=== PATIENT | female | born 1975 | race Caucasian/White ===

== ENCOUNTER 2019-06-23 18:17 | Emergency (ER) | payer BC ==
[2019-06-23 18:32] VITALS: BP 164/105; PULSE 94; TEMP 98; BMI 25.5
--- NOTE | 2019-06-23 18:32 | PDOC ---
Rapid Medical Evaluation Medical Evaluation: Allergies Allergy/AdvReac Type Severity Reaction Status Date / Time No Known Allergies Allergy Verified 03/14/14 16:01 I have performed a brief in-person evaluation of this patient. The patient presents with a chief complaint of: states is on Amoxicillin for cold but now sharp R sided CP x 2 days; denies smoking or drug use; denies use of OCPs Pertinent physical exam findings: In NAD, lungs clear, +reproducible R chest wall pain I have ordered the following: Labs, ekg, cxr The patient will proceed to the ED for further evaluation. 06/23/19 18:29
[2019-06-23 19:22] LABS: BASO % 0.8 % (0-2.0); EOS % 1.7 % (0-4.5); HEMATOCRIT 39.2 % (32.4-45.2); HEMOGLOBIN 13.1 GM/dL (10.7-15.3); LYMPH % 23.4 % (8-40); MCH 30.4 pg (25.7-33.7); MCHC 33.4 g/dl (32.0-36.0); MEAN PLT VOLUME 7.8 fl (7.5-11.1); MONO % 10.4 % (3.8-10.2); NEUT % 63.7 % (42.8-82.8); PLATELET COUNT 309 K/MM3 (134-434); RBC 4.31 M/mm3 (3.60-5.2); RDW 12.8 % (11.6-15.6); WHITE BLOOD COUNT 6.7 K/mm3 (4.0-10.0)
[2019-06-23 19:52] LABS: ALBUMIN 3.5 g/dl (3.4-5.0); ALK PHOS 73 U/L (45-117); ANION GAP 6 MMOL/L (8-16); BILIRUBIN,TOTAL 0.2 mg/dL (0.2-1); CALCIUM 8.4 mg/dL (8.5-10.1); CHLORIDE 105 mmol/L (98-107); CO2 29 mmol/L (21-32); CREATININE 0.5 mg/dL (0.55-1.3); GLUCOSE,RANDOM 94 mg/dL (74-106); POTASSIUM 3.5 mmol/L (3.5-5.1); SGOT/AST 15 U/L (15-37); SGPT/ALT 20 U/L (13-61); SODIUM 140 mmol/L (136-145); TOT PROT 6.6 g/dl (6.4-8.2)
[2019-06-23] MEDS ORDERED: ACETAMINOPHEN 325 MG TABLET (FP) PO ONE (20:30)
--- NOTE | 2019-06-23 20:33 | PDOC ---
History of Present Illness - General Chief Complaint: Chest Pain Stated Complaint: CHEST PAINS Time Seen by Provider: 06/23/19 18:29 History Source: Patient - History of Present Illness Initial Comments: 06/24/19 02:21 Ms. Chamberlain is a 43 y/o woman w/hx HTN p/w two weeks of fever, chills, cough, muscle aches. She reports recently seeing her PCP one week ago and being prescribed azithromycin for a presumed pneumonia. She reports cough, chest pain during coughing, mild shortness of breath, and generalized muscle aches. She reports previously having an atypical pneumonia and is concerned that she may have a pneumonia as she continues to have symptoms after abx course has been completed. She denies any chest pain at rest, dyspnea, weakness, confusion, N/V/ D. Past History - Past Medical History Allergies/Adverse Reactions: Allergies Allergy/AdvReac Type Severity Reaction Status Date / Time No Known Allergies Allergy Verified 03/14/14 16:01 Home Medications: Ambulatory Orders Oxycodone HCl/Acetaminophen [Percocet 5-325 mg Tablet] 1 tab PO Q6H PRN #8 tablet 03/14/14 COPD: No HTN: Yes - Surgical History Abdominal Surgery: Yes (GASTRIC SLEEV: 02/27/13) Cholecystectomy: Yes - Psycho Social/Smoking Cessation Hx Smoking Status: No Smoking History: Never smoked Have you smoked in the past 12 months: Yes Number of Cigarettes Smoked Daily: 1 'Breaking Loose' booklet given: 02/27/12 Hx Alcohol Use: Yes (SOCIAL) Drug/Substance Use Hx: No Substance Use Type: None Review of Systems - Review of Systems Able to Perform ROS?: Yes Comments:: 06/24/19 02:30 ROS: GENERAL/CONSTITUTIONAL: Fever, chills, generalized weakness. HEAD, EYES, EARS, NOSE AND THROAT: No change in vision. No ear pain or discharge. No sore throat. CARDIOVASCULAR: Chest pain, shortness of breath RESPIRATORY: Cough. No wheezing, or hemoptysis. GASTROINTESTINAL: No nausea, vomiting, diarrhea or constipation. GENITOURINARY: No dysuria, frequency, or change in urination. MUSCULOSKELETAL: Generalized muscle aches. No joint swelling or pain. No neck or back pain. SKIN: No rash NEUROLOGIC: No headache, vertigo, loss of consciousness, or change in strength/ sensation. ENDOCRINE: No increased thirst. No abnormal weight change HEMATOLOGIC/LYMPHATIC: No anemia, easy bleeding, or history of blood clots. ALLERGIC/IMMUNOLOGIC: No hives or skin allergy. *Physical Exam - Vital Signs Last Vital Signs Temp Pulse Resp BP Pulse Ox 98.0 F 94 H 16 164/105 H 99 06/23/19 18:29 06/23/19 18:29 06/23/19 18:29 06/23/19 18:29 06/23/19 18:29 - Physical Exam 06/24/19 02:31 PE: GENERAL: Awake, alert, and fully oriented, in no acute distress HEAD: No signs of trauma, normocephalic, atraumatic EYES: PERRLA, EOMI, sclera anicteric, conjunctiva clear ENT: Auricles normal inspection, hearing grossly normal, nares patent, oropharynx clear without exudates. Moist mucosa NECK: Normal ROM, supple, no lymphadenopathy, JVD, or masses LUNGS: No distress, speaks full sentences, clear to auscultation bilaterally HEART: Regular rate and rhythm, normal S1 and S2, no murmurs, rubs or gallops, peripheral pulses normal and equal bilaterally. ABDOMEN: Soft, nontender, normoactive bowel sounds. No guarding, no rebound. No masses EXTREMITIES : Normal inspection, Normal range of motion, no edema. No clubbing or cyanosis NEUROLOGICAL: Cranial nerves II through XII grossly intact. Normal speech, normal gait, no focal sensorimotor deficits SKIN: Warm, Dry, normal turgor, no rashes or lesions noted ED Treatment Course - LABORATORY CBC & Chemistry Diagram: 06/23/19 19:02 06/23/19 19:02 - ADDITIONAL ORDERS Additional order review: Laboratory Results 06/23/19 19:02 Sodium 140 Potassium 3.5 Chloride 105 Carbon Dioxide 29 Anion Gap 6 L BUN 7.0 Creatinine 0.5 L Est GFR (CKD-EPI)AfAm 137.39 Est GFR (CKD-EPI)NonAf 118.54 Random Glucose 94 Calcium 8.4 L Total Bilirubin 0.2 AST 15 ALT 20 Alkaline Phosphatase 73 Troponin I < 0.02 Total Protein 6.6 Albumin 3.5 06/23/19 19:02 RBC 4.31 MCV 91.0 MCHC 33.4 RDW 12.8 MPV 7.8 D Neutrophils % 63.7 Lymphocytes % 23.4 Monocytes % 10.4 H Eosinophils % 1.7 Basophils % 0.8 Medical Decision Making - Medical Decision Making 06/24/19 02:32 43F w/hx HTN p/w two weeks of cough, chest pain, sob, generalized muscle aches c /w influenza vs other viral URI. Plan: Influenza A/B CXR EKG CBC CMP Cardiac profile Acetaminophen 650 mg Dispo: Discharge --- Influenza A/B - negative CXR - negative EKG - NSR, no ischemic changes CBC, CMP - wnl Troponin - negative Plan for discharge with close PCP follow up. Discharge - Discharge Information Problems reviewed: Yes Clinical Impression/Diagnosis: URI (upper respiratory infection) Qualifiers: URI type: unspecified viral URI Qualified Code(s): J06.9 - Acute upper respiratory infection, unspecified Condition: Stable Disposition: HOME - Admission No - Follow up/Referral Referrals: Jose A Johnson MD [Primary Care Provider] - - Patient Discharge Instructions Patient Printed Discharge Instructions: DI for Viral Upper Respiratory Infection -- Adult Additional Instructions: You were seen in the ER for cough, muscle aches, chest pain. Your blood work was normal. Your influenza swab was normal. Please return to the ER if you develop high fevers, weakness, chills, intractable nausea and vomiting. Please see your primary care provider as soon as possible, in the next 2-3 days. - Post Discharge Activity Work/Back to School Note: Back to Work
[2019-06-23] MEDS ORDERED: ACETAMINOPHEN 325 MG TABLET (FP) ONE (20:34)
--- NOTE | 2019-06-23 22:29 | PDOC ---
Documentation entered by Marni Vázquez SCRIBE, acting as scribe for Mercedez Neri MD. Mercedez Neri MD: This documentation has been prepared by the Kathie laguna Nirvannie, SCRIBE, under my direction and personally reviewed by me in its entirety. I confirm that the documentation accurately reflects all work, treatment, procedures, and medical decision making performed by me. Attending Attestation - Resident Resident Name: Shmuel Yap - ED Attending Attestation I have performed the following: I have examined & evaluated the patient, The case was reviewed & discussed with the resident, I agree w/resident's findings & plan, Exceptions are as noted - HPI HPI: 06/23/19 21:57 The patient is a 43 year old female, with a significant past medical history of HTN and migraines, who presents to the emergency department with 2 days of sharp pleuritic chest pain. Patient is currently on Amoxicillin for cold-like symptoms. Allergies: NKDA Primary Care Physician: Dr. Johnson - Physicial Exam PE: 06/23/19 22:18 Well-nourished well-developed 43-year-old female who has been sick since last Sunday with fever, chills, nasal congestion, cough, general malaise She states that when she coughs her chest hurts Head normocephalic atraumatic Neck is supple Lungs are clear to auscultation bilaterally CVS regular rate and rhythm S1-S2 with no murmurs appreciated Abdomen is soft, flat nontender No flank pain Skin is warm and dry Neuro alert and oriented x3 ambulating with ease in the emergency department - Medical Decision Making 06/23/19 22:27 43-year-old female with a history of hypertension presents with musculoskeletal chest pain. She has chest pain when she coughs and she has had URI symptoms since last Sunday CBC and chemistries are essentially unremarkable Chest x-ray does not show any consolidation or infiltrates Influenza swab is negative Impression essential hypertension, URI Plan :discharge home patient encouraged to continue her old high blood pressure plus her new medication which is Rampril 8 mg
--- NOTE | 2019-06-24 12:58 | EKG ---
Test Reason : Blood Pressure : / mmHG Vent. Rate : 085 BPM Atrial Rate : 085 BPM P-R Int : 160 ms QRS Dur : 086 ms QT Int : 382 ms P-R-T Axes : 083 073 055 degrees QTc Int : 454 ms NORMAL SINUS RHYTHM BIATRIAL ENLARGEMENT ABNORMAL ECG WHEN COMPARED WITH ECG OF 27-FEB-2012 07:17, NO SIGNIFICANT CHANGE WAS FOUND Confirmed by MD Geovanny, Radu ([id number]) on 06/24/2019 12:58:06 PM Referred By: Confirmed By:Radu Small MD
== END 2019-06-23 22:15 | disposition home or self-care (01) ==
LOC: JER 18:17
DX: J06.9 Acute upper respiratory infection, unspecified (principal); B97.89 Other viral agents as the cause of diseases classified elsewhere
CPT/HCPCS: 36415; 71046-TC-FY; 80053; 84484; 85025; 87804; 93005; 93010; 99283-25

== ENCOUNTER 2021-01-17 13:25 | Emergency (ER) | payer BC ==
[2021-01-17 13:35] VITALS: BMI 24.3
[2021-01-17] MEDS ORDERED: MAG HYDROX/AL HYDROX/SIMETH -MYLANTA- ORAL SUSPENSION PO ONE (14:44)
[2021-01-17] MEDS ORDERED: FAMOTIDINE 20 MG TABLET PO ONE (14:44)
[2021-01-17] MEDS ORDERED: MAG HYDROX/AL HYDROX/SIMETH 30 ML UNIT-DOSE CUP ONE (14:53)
[2021-01-17] MEDS ORDERED: FAMOTIDINE 20 MG TABLET ONE (14:53)
[2021-01-17 16:30] LABS: BASO % 0.9 % (0-2.0); EOS % 6.2 % (0-4.5); HEMATOCRIT 35.1 % (32.4-45.2); HEMOGLOBIN 12.2 GM/dL (10.7-15.3); MCHC 34.9 g/dl (32.0-36.0); MEAN CELL VOLUME 88.9 fl (80-96); MEAN PLT VOLUME 7.9 fl (7.5-11.1); MONO % 19.1 % (3.8-10.2); NEUT % 48.8 % (42.8-82.8); PLATELET COUNT 242 10^3/uL (134-434); RBC 3.95 M/mm3 (3.60-5.2); RDW 13.4 % (11.6-15.6); WHITE BLOOD COUNT 5.9 K/mm3 (4.0-10.0)
[2021-01-17 16:37] LABS: CHLORIDE 106 mmol/L (98-107); SODIUM 140 mmol/L (136-145)
[2021-01-17 16:41] LABS: ALBUMIN 3.2 g/dl (3.4-5.0); ANION GAP 6 MMOL/L (8-16); CALCIUM 8.3 mg/dL (8.5-10.1); CO2 27 mmol/L (21-32)
[2021-01-17 16:42] LABS: GLUCOSE,RANDOM 108 mg/dL (74-106); LIPASE 29 U/L (73-393)
[2021-01-17 16:44] LABS: CREATININE 0.5 mg/dL (0.55-1.3); SGOT/AST 11 U/L (15-37); SGPT/ALT 20 U/L (13-61)
[2021-01-17 16:46] LABS: BILIRUBIN,TOTAL 0.2 mg/dL (0.2-1); TOT PROT 6.5 g/dl (6.4-8.2)
[2021-01-17 16:47] LABS: ALK PHOS 54 U/L (45-117)
[2021-01-17 17:22] LABS: ANISOCYTOSIS 0; MACROCYTOSIS 0; PLATELET ESTIMATE NORMAL
[2021-01-17] MEDS ORDERED: ACETAMINOPHEN 1000 MG/100 ML VIAL (NON FORMULARY) IVPB ONE (18:54)
[2021-01-17] MEDS ORDERED: ACETAMINOPHEN INJECTION 100 ML IVPB ONE (19:23)
[2021-01-17] MEDS ORDERED: morphine CARPU-JECT 2 MG/1 ML DISP.SYRIN IVPUSH ONE (19:33)
[2021-01-17] MEDS ORDERED: MORPHINE SULFATE 2 MG/ML VIAL ONE (19:57)
[2021-01-17] MEDS ORDERED: PANTOPRAZOLE SODIUM 40 MG VIAL IVPUSH ONE (20:43)
[2021-01-17] MEDS ORDERED: PANTOPRAZOLE SODIUM 40 MG VIAL ONE (21:01)
[2021-01-17 21:27] VITALS: BP 130/95; PULSE 96; TEMP 98.4
== END 2021-01-17 21:35 | disposition home or self-care (01) ==
LOC: JER 13:25
PROC: 3E0333Z Introduction of Anti-inflammatory into Peripheral Vein, Percutaneous Approach (ICD-10-PCS; principal; 2021-01-17)
PROC: 3E033NZ Introduction of Analgesics, Hypnotics, Sedatives into Peripheral Vein, Percutaneous Approach (ICD-10-PCS; 2021-01-17)
PROC: 3E033GC Introduction of Other Therapeutic Substance into Peripheral Vein, Percutaneous Approach (ICD-10-PCS; 2021-01-17)
DX: K21.00 Gastro-esophageal reflux disease with esophagitis, without bleeding (principal)
CPT/HCPCS: 36415; 71046-TC-FY; 74177-TC; 80053; 82550; 83690; 84484; 84703; 85025; 93005; 93010; 99285-25; C9803; J0131; Q9967; U0003; U0005

== ENCOUNTER 2022-07-20 13:24 | Day surgery (SDC) | payer BC ==
[2022-07-20] MEDS ORDERED: IRON SUCROSE INJECTION 200 MG in SODIUM CHLORIDE 100 ML IVPB ONE (14:00)
[2022-07-20 15:28] VITALS: BP 154/98; PULSE 73; RESP 17; TEMP 98.7
== END 2022-07-20 15:30 | disposition home or self-care (01) ==
LOC: FINFUSION 13:24 → FM/S 13:25 → FINFUSION 15:30
PROVIDERS: ATTEND Family Medicine
PROC: 3E033GC Introduction of Other Therapeutic Substance into Peripheral Vein, Percutaneous Approach (ICD-10-PCS; principal; 2022-07-20)
DX: D50.9 Iron deficiency anemia, unspecified (principal)
CPT/HCPCS: 96365; J1756

== ENCOUNTER 2022-07-28 13:38 | Day surgery (SDC) | payer BC ==
[2022-07-28] MEDS ORDERED: IRON SUCROSE INJECTION 200 MG in SODIUM CHLORIDE 100 ML IVPB ONE (14:30)
[2022-07-28 15:26] VITALS: BP 130/75; PULSE 84; RESP 17; TEMP 98.4
== END 2022-07-28 16:27 | disposition home or self-care (01) ==
LOC: FINFUSION 13:38 → FM/S 13:43 → FINFUSION 16:27
PROVIDERS: ATTEND Family Medicine
PROC: 3E033GC Introduction of Other Therapeutic Substance into Peripheral Vein, Percutaneous Approach (ICD-10-PCS; principal; 2022-07-28)
DX: D50.9 Iron deficiency anemia, unspecified (principal)
CPT/HCPCS: 96365; J1756

== ENCOUNTER 2022-08-04 11:56 | Day surgery (SDC) | payer BC ==
[2022-08-04] MEDS ORDERED: diphenhydrAMINE HCL 50 MG CAPSULE PO ONE (12:15)
[2022-08-04] MEDS ORDERED: HYDROCORTISONE SOD SUCCINATE 100 MG/2 ML VIAL IVPB ONE (12:15)
[2022-08-04] MEDS ORDERED: IRON SUCROSE INJECTION 200 MG in SODIUM CHLORIDE 100 ML IVPB ONE (12:20)
[2022-08-04 13:07] VITALS: BP 130/75; RESP 18; TEMP 98.4
[2022-08-04 13:53] VITALS: PULSE 81
== END 2022-08-04 13:56 | disposition home or self-care (01) ==
LOC: FINFUSION 11:56 → FM/S 11:58 → FINFUSION 13:56
PROVIDERS: ATTEND Family Medicine
PROC: 3E033GC Introduction of Other Therapeutic Substance into Peripheral Vein, Percutaneous Approach (ICD-10-PCS; principal; 2022-08-04)
DX: D50.9 Iron deficiency anemia, unspecified (principal)
CPT/HCPCS: 81025; 96365; J1756